=== PATIENT | male | born 1935 | race Caucasian/White ===

== ENCOUNTER 2016-10-30 13:51 | Outpatient (CLI) | payer MEDICARE, OTHER | END 2016-10-30 13:52 | LOC: POD 13:51 | PROVIDERS: ATTEND Podiatrist | DX: B35.1 Tinea unguium (principal); M79.674 Pain in right toe(s); M79.675 Pain in left toe(s) | CPT/HCPCS: 11721; G0463 ==

== ENCOUNTER 2017-01-15 13:26 | Outpatient (CLI) | payer MEDICARE, OTHER | END 2017-01-15 13:27 | LOC: POD 13:26 | PROVIDERS: ATTEND Podiatrist | DX: B35.1 Tinea unguium (principal); M79.674 Pain in right toe(s); M79.675 Pain in left toe(s) | CPT/HCPCS: 11721; G0463 ==

== ENCOUNTER 2017-03-26 13:43 | Outpatient (CLI) | payer MEDICARE, OTHER | END 2017-03-26 13:50 | LOC: POD 13:43 | PROVIDERS: ATTEND Podiatrist | DX: B35.1 Tinea unguium (principal); M79.674 Pain in right toe(s); M79.675 Pain in left toe(s) | CPT/HCPCS: 11721; G0463 ==

== ENCOUNTER 2017-06-25 13:14 | Outpatient (CLI) | payer MEDICARE, OTHER | END 2017-06-25 13:15 | LOC: POD 13:14 | PROVIDERS: ATTEND Podiatrist | DX: B35.1 Tinea unguium (principal); M79.674 Pain in right toe(s); M79.675 Pain in left toe(s) | CPT/HCPCS: 11721; G0463 ==

== ENCOUNTER 2017-08-25 16:51 | Emergency (ER) | payer MEDICARE, OTHER ==
--- NOTE | 2017-08-25 17:21 | ED Physician Documentation ---
General Adult - HISTORIAN Historian: patient, spouse - HPI Stated Complaint: rash on back Chief Complaint: General Adult Onset: days ago (1) Timing: still present Severity: moderate Further Comments: yes (Pt is an 81 yo male with a rash on the L side of his lower back. Rash has been uncomfortable, but pt has not had much pain with it. Pt spends long periods of time sitting in his chair. One dime sized blister opened and drained. Pt is concerned about shingles. He has not had shingles before.) - ROS CONST: no problems EYES/ENT: none CVS/RESP: none GI/: none MS/SKIN/LYMPH: rash - PAST HX Past History: other (foot problems, ) Allergies/Adverse Reactions: Allergies Allergy/AdvReac Type Severity Reaction Status Date / Time No Known Allergies Allergy Verified 08/25/17 17:02 Home Medications: Ambulatory Orders Medication Instructions Recorded Valacyclovir HCl [Valtrex] 1,000 mg PO Q12H #14 tablet 08/25/17 - SOCIAL HX Smoking History: non-smoker - FAMILY HX Family History: No - VITAL SIGNS Vital Signs: Vital Signs Temp Pulse Resp BP Pulse Ox 96.2 F L 75 20 135/84 95 08/25/17 16:51 08/25/17 16:51 08/25/17 16:51 08/25/17 16:51 08/25/17 16:51 - REVIEWED ASSESSMENTS Nursing Assessment Reviewed: Yes Vitals Reviewed: Yes Progress - Progress Progress: Rx Valacyclovir 1000 mg. Take one every 12 hrs for 7 days. General Adult Physical Exam - PHYSICAL EXAM GENERAL APPEARANCE: no distress EENT: pharynx normal NECK: normal inspection, supple RESPIRATORY: no resp distress, chest non-tender, breath sounds normal CVS: reg rate & rhythm, heart sounds normal BACK: other (rash on L side of lower back) SKIN: other (rash on L side only of lower back, dull red dime and quarter sized circular lesions. These appear to extend to L flank in a dermatomal distribution. ? shingles vs early decubitus ulcers, but ulcers would not extend to flank.) EXTREMITIES: non-tender, normal range of motion NEURO: oriented X3, motor nml, sensation nml, other (baseline ms) Discharge Clincal Impression: Possible shingles Prescriptions: Valacyclovir HCl [Valtrex] 1,000 mg PO Q12H #14 tablet Referrals: Juan Middleton MD [Primary Care Provider] - Condition: Good Disposition: 01 HOME, SELF-CARE Decision to Admit: NO Decision Time: 17:21
[2017-08-25 17:47] VITALS: BP 104/64
== END 2017-08-25 17:30 | disposition home or self-care (01) ==
LOC: ED 16:51
DX: R21 Rash and other nonspecific skin eruption (principal)
CPT/HCPCS: 99283